=== PATIENT | female | born 1965 | race Caucasian/White ===

== ENCOUNTER 2017-10-14 11:27 | Emergency (ER) | payer OTHER, MEDICAID, SELFPAY ==
[2017-10-14 11:31] VITALS: BP 146/98; PULSE 94; RESP 14; TEMP 36.7; O2SAT 92; BMI 27.8
[2017-10-14] MEDS: SODIUM CHLORIDE 0.9% 1,000 ML 1000 ML IV (11:47)
[2017-10-14] MEDS: ONDANSETRON 4 MG/2 ML INJ IV ×2 (11:47→13:15)
[2017-10-14 11:56] LABS: INR 1.2 (0.9-1.3); Prothrombin Time 12.5 SECONDS (10.1-12.7)
[2017-10-14 11:57] LABS: Add Manual Diff / Slide Review NO; Basophils Percent Auto 0.3 % (0-2); Eosinophils Percent Auto 0.6 % (2-4); Hematocrit 37.7 % (36-46); Hemoglobin 12.9 g/dL (12.0-16.0); Lymphocytes Percent Auto 22.1 % (25-40); Mean Corpuscular HGB Conc 34.3 % (30-36); Mean Corpuscular Hemoglobin 28.1 PG (26-34); Mean Corpuscular Volume 82.1 fL (80-100); Monocytes Percent Auto 4.3 % (3-14); Neutrophils Absolute Auto 5500 /uL (3000-5900); Neutrophils Percent Auto 72.7 % (50-75); Platelet Count 240 X10^3/uL (150-400); Red Blood Cell Count 4.59 X10^6/uL (4.0-5.2); Red Cell Distribution Width 13.8 % (11.6-14.8); White Blood Cell Count 7.6 X10^3/uL (4.5-11.0)
[2017-10-14 11:59] LABS: PTT Partial Thromboplastin Tim 34 SECONDS (26.4-36.2)
[2017-10-14 12:01] LABS: Alanine Aminotransferase 24 IU/L (9-52); Albumin Globulin Ratio 1.3 (1.0-2.8); Alkaline Phosphatase 61 U/L (38-126); Aspartate Aminotransferase 32 IU/L (14-36); BUN Creatinine Ratio 31.7 (6-22); Bilirubin Total 0.8 mg/dL (0.2-1.3); Blood Urea Nitrogen 19 mg/dL (7-17); Calcium 9.6 mg/dL (8.4-10.2); Carbon Dioxide 22 mmol/L (22-32); Chloride 104 mmol/L (98-107); Estimated Glomerular Filt Rate > 60.0 mL/min (>60); Globulin 3.8 g/dL (1.7-4.1); Glucose 120 mg/dL (70-100); HEMOLYSIS 58 (0-50); Lipase 133 U/L (23-300); Potassium 3.9 mmol/L (3.4-5.1); Sodium 141 mmol/L (137-145); Total Protein 8.8 g/dL (6.3-8.2)
--- NOTE | 2017-10-14 12:01 | ED.ABDPAIN ---
HPI - Abdominal Pain <PARISH Joseph - Last Filed: 10/14/17 22:04> General Chief Complaint: Abdominal Pain Stated Complaint: PAIN RIGHT SIDE,VOMITING Time Seen by Provider: 10/14/17 12:05 History of Present Illness HPI narrative: 51-year-old female here for complaint of pain of right upper quadrant abdominal pain. She states she has had chronic right upper abdominal pain for the last 2 years. She has seen Gastroenterology within the last month and is currently awaiting endoscopy next month. She states that pain is worsened after eating she has nausea as well. She denies any trauma to the right upper quadrant. Positive p.o. intake. She does state that she has a urine urgency no dysuria. No flank pain no fever or chills. Last bowel movement was yesterday and was normal. No other concerns or complaints. MD complaint: abdominal pain Related Data Previous Rx's Medication Instructions Recorded ondansetron 4 mg PO Q6H PRN #10 tab 10/14/17 Allergies Allergy/AdvReac Type Severity Reaction Status Date / Time Penicillins [PENICILLINS] Allergy Severe hives Verified 10/14/17 11:48 codeine [CODEINE] Allergy Unknown Verified 10/14/17 11:34 Review of Systems <PARISH Joseph - Last Filed: 10/14/17 22:04> Constitutional Denies chills, Denies fever(s), Denies lethargy and Denies weakness Eyes Denies change in vision, Denies eye discharge, Denies irritation and Denies loss of vision ENT Ears, Nose, Mouth, and Throat: Denies change in voice, Denies neck pain and Denies sore throat Cardiovascular Denies chest pain, Denies irregular heart rhythm, Denies lightheadedness, Denies palpitations, Denies dyspnea, Denies dyspnea on exertion and Denies orthopnea Respiratory Denies cough, Denies dyspnea, Denies dyspnea on exertion and Denies wheezing Gastrointestinal Gastrointestinal: Reports abdominal pain Genitourinary Reports urinary urgency Musculoskeletal Denies neck pain Integumentary/Breasts Denies pruritus, Denies erythema, Denies rash and Denies wounds Neurologic Denies confusion, Denies loss of vision and Denies weakness Psychiatric Denies anxiety, Denies confusion, Denies depression, Denies homicidal ideation and Denies suicidal ideation Endocrine Denies palpitations Allergic/Immunologic Denies wheezing Exam <PARISH Joseph - Last Filed: 10/14/17 22:04> Initial Vital Signs Initial Vital Signs: Vital Signs Temperature 98.0 F 10/14/17 11:31 Pulse Rate 94 H 10/14/17 11:31 Respiratory Rate 14 10/14/17 11:31 Blood Pressure 146/98 H 10/14/17 11:31 Pulse Oximetry 92 10/14/17 11:31 Const General: cooperative and well developed Nutritional Appearance: well nourished Orientation: alert, awake, oriented x3 and not confused [facility] Mouth: oral mucosae normal and moist mucous membranes Eyes Conjunctivae: conjunctivae normal Sclera: sclerae normal Pupils: PERRL EOM: EOM intact bilaterally Resp Effort & Inspection: normal respiratory effort, able to speak in complete sentences, no respiratory distress and no use of accessory muscles Auscultation: clear to auscultation bilaterally, no rales, no rhonchi and no wheezes Cardio Rate: regular rate Rhythm: regular rhythm Heart Sounds: no click, no gallops, no murmurs and no rubs GI Palpation: soft, no hepatosplenomegaly, No hernia, No mass and tender (Tenderness on palpation right upper quadrant) Auscultation: normal bowel sounds General: No CVA tenderness Skin General: no rashes or lesions noted, No jaundice and No petechiae <Omar Alanis DO - Last Filed: 10/16/17 19:57> Initial Vital Signs Initial Vital Signs: Vital Signs Temperature 98.0 F 10/14/17 11:31 Pulse Rate 94 H 10/14/17 11:31 Respiratory Rate 14 10/14/17 11:31 Blood Pressure 146/98 H 10/14/17 11:31 Pulse Oximetry 92 10/14/17 11:31 Course <PARISH Joseph - Last Filed: 10/14/17 22:04> Orders Ordered: Discontinued Medications Acetaminophen (Tylenol) 650 mg PO NOW ONE Stop: 10/14/17 12:20 Last Admin: 10/14/17 13:15 Dose: 650 mg Sodium Chloride (Normal Saline 0.9%) 1,000 mls @ 1,000 mls/hr IV BOLUS ONE Stop: 10/14/17 12:43 Last Infusion: 10/14/17 12:44 Dose: 0 mls/hr Admin: 10/14/17 11:47 Dose: 1,000 mls/hr Ondansetron HCl (Zofran) 4 mg IV NOW ONE Stop: 10/14/17 11:44 Last Admin: 10/14/17 11:47 Dose: 4 mg Ondansetron HCl (Zofran) 4 mg IV NOW ONE Stop: 10/14/17 13:10 Last Admin: 10/14/17 13:15 Dose: 4 mg Vital Signs - 8 hr 10/14/17 14:27 Pulse Rate 71 Respiratory Rate 15 Blood Pressure 140/76 H Pulse Oximetry 99 <Omar Alanis DO - Last Filed: 10/16/17 19:57> Orders Ordered: Discontinued Medications Acetaminophen (Tylenol) 650 mg PO NOW ONE Stop: 10/14/17 12:20 Last Admin: 10/14/17 13:15 Dose: 650 mg Sodium Chloride (Normal Saline 0.9%) 1,000 mls @ 1,000 mls/hr IV BOLUS ONE Stop: 10/14/17 12:43 Last Infusion: 10/14/17 12:44 Dose: 0 mls/hr Admin: 10/14/17 11:47 Dose: 1,000 mls/hr Ondansetron HCl (Zofran) 4 mg IV NOW ONE Stop: 10/14/17 11:44 Last Admin: 10/14/17 11:47 Dose: 4 mg Ondansetron HCl (Zofran) 4 mg IV NOW ONE Stop: 10/14/17 13:10 Last Admin: 10/14/17 13:15 Dose: 4 mg Vital Signs - 8 hr 10/14/17 14:27 Pulse Rate 71 Respiratory Rate 15 Blood Pressure 140/76 H Pulse Oximetry 99 MDM - Abdominal Pain <PARISH Joseph - Last Filed: 10/14/17 22:04> Lab Data Result diagrams: 10/14/17 11:40 10/14/17 11:40 Lab Results 10/14/17 10/14/17 10/14/17 Range/Units 11:40 11:40 11:40 WBC 7.6 (4.5-11.0) X10^3/uL RBC 4.59 (4.0-5.2) X10^6/uL Hgb 12.9 (12.0-16.0) g/dL Hct 37.7 (36-46) % MCV 82.1 (80-100) fL MCH 28.1 (26-34) PG MCHC 34.3 (30-36) % RDW 13.8 (11.6-14.8) % Plt Count 240 (150-400) X10^3/uL Neut % (Auto) 72.7 (50-75) % Lymph % (Auto) 22.1 L (25-40) % Grand % (Auto) 4.3 (3-14) % Eos % (Auto) 0.6 L (2-4) % Baso % (Auto) 0.3 (0-2) % Neut # (Auto) 5500 (9901-3461) /uL PT 12.5 (10.1-12.7) SECONDS INR 1.2 (0.9-1.3) APTT 34 (26.4-36.2) SECONDS Sodium 141 (137-145) mmol/L Potassium 3.9 (3.4-5.1) mmol/L Chloride 104 (98-107) mmol/L Carbon Dioxide 22 (22-32) mmol/L BUN 19 H (7-17) mg/dL Creatinine 0.60 (0.52-1.04) mg/dL Estimated GFR > 60.0 (>60) mL/min BUN/Creatinine Ratio 31.7 H (6-22) Glucose 120 H (70-100) mg/dL Calcium 9.6 (8.4-10.2) mg/dL Total Bilirubin 0.8 (0.2-1.3) mg/dL AST 32 (14-36) IU/L ALT 24 (9-52) IU/L Alkaline Phosphatase 61 (38-126) U/L Total Protein 8.8 H (6.3-8.2) g/dL Albumin 5.0 (3.5-5.0) g/dL Globulin 3.8 (1.7-4.1) g/dL Albumin/Globulin Ratio 1.3 (1.0-2.8) Lipase 133 (23-300) U/L Urine RBC (0-5/HPF) Urine WBC (0-5/HPF) Urine Bacteria (None) Ur Culture Indicated? Micro UA Comment 10/14/17 Range/Units 12:15 WBC (4.5-11.0) X10^3/uL RBC (4.0-5.2) X10^6/uL Hgb (12.0-16.0) g/dL Hct (36-46) % MCV (80-100) fL MCH (26-34) PG MCHC (30-36) % RDW (11.6-14.8) % Plt Count (150-400) X10^3/uL Neut % (Auto) (50-75) % Lymph % (Auto) (25-40) % Grand % (Auto) (3-14) % Eos % (Auto) (2-4) % Baso % (Auto) (0-2) % Neut # (Auto) (7150-0703) /uL PT (10.1-12.7) SECONDS INR (0.9-1.3) APTT (26.4-36.2) SECONDS Sodium (137-145) mmol/L Potassium (3.4-5.1) mmol/L Chloride (98-107) mmol/L Carbon Dioxide (22-32) mmol/L BUN (7-17) mg/dL Creatinine (0.52-1.04) mg/dL Estimated GFR (>60) mL/min BUN/Creatinine Ratio (6-22) Glucose (70-100) mg/dL Calcium (8.4-10.2) mg/dL Total Bilirubin (0.2-1.3) mg/dL AST (14-36) IU/L ALT (9-52) IU/L Alkaline Phosphatase (38-126) U/L Total Protein (6.3-8.2) g/dL Albumin (3.5-5.0) g/dL Globulin (1.7-4.1) g/dL Albumin/Globulin Ratio (1.0-2.8) Lipase (23-300) U/L Urine RBC None seen (0-5/HPF) Urine WBC None seen (0-5/HPF) Urine Bacteria None seen (None) Ur Culture Indicated? Not Reportable Micro UA Comment Not Reportable Imaging Data US - abdomen: Radiologist's impression: PROCEDURE: US ABDOMEN COMPLETE INDICATIONS: 51 year-old female with right upper quadrant abdominal pain. TECHNIQUE: Real-time scanning was performed of the abdominal and retroperitoneal organs, with image documentation. COMPARISON: [facility], [place], ABDOMEN WITH CONTRAST, 08/09/2016, 9:56. FINDINGS: Liver: Liver is normal in size and homogeneous in echotexture. Gallbladder: No gallstones or biliary sludge. Gallbladder wall thickness is normal. No pericholecystic fluid. Biliary ducts: Intrahepatic bile ducts are non-dilated. Extrahepatic bile duct caliber measures 3.9 mm. Normal is 6-7 mm or less in diameter, or 10 mm or less post-cholecystectomy. Pancreas: Visualized portions of the pancreas are sonographically normal. Spleen: Spleen is normal in size and homogeneous in echotexture. Kidneys: Kidneys are normal in size and echotexture. Right kidney measures 11.2 cm long; left kidney measures 12.0 cm long. No hydronephrosis or nephrolithiasis. No solid masses. Aorta: Visualized aorta is normal in caliber at less than 3 cm. Iliacs: Proximal common iliac arteries are normal in caliber at less than 2.5 cm. IVC: Intrahepatic inferior vena cava is patent. Miscellaneous: No free abdominal fluid. IMPRESSION: No sonographic explanation for right upper quadrant abdominal pain. Dictated by: Dusty Wing M.D. on 10/14/2017 at 13:26 Approved by: Dusty Wing M.D. on 10/14/2017 at 13:28 MDM Narrative Medical decision making narrative: CBC Chem panel and lipase were obtained and were unremarkable. Urinalysis was negative for urinary tract infection. Ultrasound of the right upper quadrant was obtained and was negative for any acute findings. Signs and symptoms presents as chronic right upper quadrant pain. [id number] Tylenol as needed for any discomfort. Small amount of Zofran as prescribed for nausea. She is encouraged to follow up with Gastroenterology as scheduled for further treatment and evaluation. Follow up with primary care provider. Return emergency room for any worsening symptoms. <Omar Alanis, DO - Last Filed: 10/16/17 19:57> Lab Data Lab Results 10/14/17 10/14/17 10/14/17 Range/Units 11:40 11:40 11:40 WBC 7.6 (4.5-11.0) X10^3/uL RBC 4.59 (4.0-5.2) X10^6/uL Hgb 12.9 (12.0-16.0) g/dL Hct 37.7 (36-46) % MCV 82.1 (80-100) fL MCH 28.1 (26-34) PG MCHC 34.3 (30-36) % RDW 13.8 (11.6-14.8) % Plt Count 240 (150-400) X10^3/uL Neut % (Auto) 72.7 (50-75) % Lymph % (Auto) 22.1 L (25-40) % Grand % (Auto) 4.3 (3-14) % Eos % (Auto) 0.6 L (2-4) % Baso % (Auto) 0.3 (0-2) % Neut # (Auto) 5500 (3429-1771) /uL PT 12.5 (10.1-12.7) SECONDS INR 1.2 (0.9-1.3) APTT 34 (26.4-36.2) SECONDS Sodium 141 (137-145) mmol/L Potassium 3.9 (3.4-5.1) mmol/L Chloride 104 (98-107) mmol/L Carbon Dioxide 22 (22-32) mmol/L BUN 19 H (7-17) mg/dL Creatinine 0.60 (0.52-1.04) mg/dL Estimated GFR > 60.0 (>60) mL/min BUN/Creatinine Ratio 31.7 H (6-22) Glucose 120 H (70-100) mg/dL Calcium 9.6 (8.4-10.2) mg/dL Total Bilirubin 0.8 (0.2-1.3) mg/dL AST 32 (14-36) IU/L ALT 24 (9-52) IU/L Alkaline Phosphatase 61 (38-126) U/L Total Protein 8.8 H (6.3-8.2) g/dL Albumin 5.0 (3.5-5.0) g/dL Globulin 3.8 (1.7-4.1) g/dL Albumin/Globulin Ratio 1.3 (1.0-2.8) Lipase 133 (23-300) U/L Urine RBC (0-5/HPF) Urine WBC (0-5/HPF) Urine Bacteria (None) Ur Culture Indicated? Micro UA Comment 10/14/17 Range/Units 12:15 WBC (4.5-11.0) X10^3/uL RBC (4.0-5.2) X10^6/uL Hgb (12.0-16.0) g/dL Hct (36-46) % MCV (80-100) fL MCH (26-34) PG MCHC (30-36) % RDW (11.6-14.8) % Plt Count (150-400) X10^3/uL Neut % (Auto) (50-75) % Lymph % (Auto) (25-40) % Grand % (Auto) (3-14) % Eos % (Auto) (2-4) % Baso % (Auto) (0-2) % Neut # (Auto) (2286-4084) /uL PT (10.1-12.7) SECONDS INR (0.9-1.3) APTT (26.4-36.2) SECONDS Sodium (137-145) mmol/L Potassium (3.4-5.1) mmol/L Chloride (98-107) mmol/L Carbon Dioxide (22-32) mmol/L BUN (7-17) mg/dL Creatinine (0.52-1.04) mg/dL Estimated GFR (>60) mL/min BUN/Creatinine Ratio (6-22) Glucose (70-100) mg/dL Calcium (8.4-10.2) mg/dL Total Bilirubin (0.2-1.3) mg/dL AST (14-36) IU/L ALT (9-52) IU/L Alkaline Phosphatase (38-126) U/L Total Protein (6.3-8.2) g/dL Albumin (3.5-5.0) g/dL Globulin (1.7-4.1) g/dL Albumin/Globulin Ratio (1.0-2.8) Lipase (23-300) U/L Urine RBC None seen (0-5/HPF) Urine WBC None seen (0-5/HPF) Urine Bacteria None seen (None) Ur Culture Indicated? Not Reportable Micro UA Comment Not Reportable Discharge Plan Departure Patient Disposition: Home, Self-Care Clinical Impression: Abdominal pain Discharge Date/Time: 10/14/17 14:27 Interventions: ED Discharge Assessment Last Done: 10/14/17 14:27 Instructions: DI for Abdominal Pain-Adult Activity Restrictions/Additional Instructions: Laboratory results today were unremarkable. Ultrasound of the right upper quadrant was obtained was negative for any acute findings. Signs and symptoms presents as chronic abdominal pain. Follow up with Gastroenterology as scheduled for further evaluation and treatment. Use [id number] Tylenol as needed for any discomfort. Small amount of Zofran as prescribed for nausea use as directed. For any worsening symptoms return to the emergency room. Follow up with primary care provider. Prescriptions: New ondansetron 4 mg tablet,disintegrating 4 mg PO Q6H PRN (Reason: nausea) Qty: 10 RF: 0 Referrals: Yuly Osorio MD [Primary Care Provider] - <Omar Alanis DO - Last Filed: 10/16/17 19:57> Cosign ED Attending Cosgabeature Attestation: I was immediately available in the department for consultation. Documentation has been reviewed. I agree with assessment and plan.
--- NOTE | 2017-10-14 12:13 | DI.US.S_ITS ---
PROCEDURE: US ABDOMEN COMPLETE INDICATIONS: 51 year-old female with right upper quadrant abdominal pain. TECHNIQUE: Real-time scanning was performed of the abdominal and retroperitoneal organs, with image documentation. COMPARISON: [facility], [place], ABDOMEN WITH CONTRAST, 08/09/2016, 9:56. FINDINGS: Liver: Liver is normal in size and homogeneous in echotexture. Gallbladder: No gallstones or biliary sludge. Gallbladder wall thickness is normal. No pericholecystic fluid. Biliary ducts: Intrahepatic bile ducts are non-dilated. Extrahepatic bile duct caliber measures 3.9 mm. Normal is 6-7 mm or less in diameter, or 10 mm or less post-cholecystectomy. Pancreas: Visualized portions of the pancreas are sonographically normal. Spleen: Spleen is normal in size and homogeneous in echotexture. Kidneys: Kidneys are normal in size and echotexture. Right kidney measures 11.2 cm long; left kidney measures 12.0 cm long. No hydronephrosis or nephrolithiasis. No solid masses. Aorta: Visualized aorta is normal in caliber at less than 3 cm. Iliacs: Proximal common iliac arteries are normal in caliber at less than 2.5 cm. IVC: Intrahepatic inferior vena cava is patent. Miscellaneous: No free abdominal fluid. IMPRESSION: No sonographic explanation for right upper quadrant abdominal pain. Dictated by: Dusty Wing M.D. on 10/14/2017 at 13:26 Approved by: Dusty Wing M.D. on 10/14/2017 at 13:28
[2017-10-14] MEDS: ACETAMINOPHEN 325 MG TABLET 650 MG PO (13:15)
[2017-10-14 13:16] LABS: Bacteria Urine None Seen; RBC Urine None Seen (0-5/HPF); WBC Urine None Seen (0-5/HPF)
[2017-10-14 14:27] VITALS: BP 140/76; PULSE 71; RESP 15; O2SAT 99
== END 2017-10-14 14:27 | disposition home or self-care (01) ==
PROVIDERS: Emergency Medicine; Emergency Provider Nurse Practitioner Family; PCP Family Medicine
DX: R10.9 Unspecified abdominal pain (principal)
CPT/HCPCS: 36591; 76700; 80053; 81003; 81015; 83690; 85025; 85610; 85730; 93005; 96361; 96374; 96376; 99283; 99285; J2405

== ENCOUNTER 2019-05-29 13:50 | Emergency (ER) | payer OTHER, MEDICAID, SELFPAY ==
[2019-05-29 14:20] VITALS: BP 163/100; PULSE 86; RESP 18; TEMP 36.8; O2SAT 98
== END 2019-05-29 15:58 | disposition left against medical advice (07) ==
PROVIDERS: Emergency Provider Emergency Medicine; PCP Family Medicine
CPT/HCPCS: 99281